=== PATIENT | male | born 1985 | race African-American/Black ===

== ENCOUNTER 2018-04-02 07:25 | Emergency (ER) | payer OTHER ==
[~2018-04-02] VITALS: Ht 175.3 cm; Wt 90.7 kg
--- NOTE | ~2018-04-02 | EKG ---
[address] [place] [address] ELECTROCARDIOGRAM REPORT Name: COURTNEYFERMIN Room #: PRE M.R.#: [id number] Admission: Attend Phys: Discharge: Date of : 85 Report #: [id number] THIS REPORT FOR: //name// [facility] ED Test Date: 2018-04-02 Test Time: 07:25:08 Pat Name: GAIL VALDEZ Department: Room: Gender: M Motor Boss: Gabriella JAFFE : 1985 Requested By: Alma Aguilar Order Number: [id number] MD: Jose Alcantara Measurements Intervals [place] Rate: 63 P: 39 ID: 141 QRS: 56 QRSD: 93 T: -1 QT: 376 QTc: 385 Interpretive Statements Sinus rhythm Baseline wander in lead(s) V4 No previous ECG available for comparison Electronically Signed On 04-02-2018 7:57:23 CDT by Jose Alcantara [email or web address] <ELECTRONICALLY SIGNED> By: Jose Alcanatra MD, [facility] 04/02/18 0757 0725 0725 Jose Alcantara MD, FACC /EPI
[2018-04-02] MEDS ORDERED: BUPRENORP-NALO1 EACH PO (07:33)
[2018-04-02 07:52] LABS: ABSOLUTE NEUTROPHILS 4.4 thou/uL (1.4-8.2); BASOPHILS 0.4 % (0.0-2.0); EOSINOPHILS 2.7 % (0.0-3.0); HEMATOCRIT 42.9 % (42.0-52.0); HEMOGLOBIN 14.6 gm/dL (14.0-18.0); LYMPHOCYTES 23.8 % (24.0-44.0); MCH 32.4 pg (26.0-34.0); MCHC 34.2 g/dL (28.0-37.0); MCV 94.8 fL (80.0-100.0); MONOCYTES 8.8 % (1.0-8.0); PLATELET COUNT 260 thou/uL (150-400); POLYS 64.3 % (36.0-66.0); RBC 4.52 mil/uL (4.50-6.00); RDW 14.4 % (10.5-14.5); WBC 6.9 thou/uL (4.0-11.0)
[2018-04-02 07:58] LABS: ANION GAP 8 mmol/L (7-16); BUN 14 mg/dL (7-18); CALCIUM 9.2 mg/dL (8.5-10.1); CHLORIDE 103 mmol/L (98-107); CO2 26 mmol/L (21-32); GLUCOSE 106 mg/dL (74-106); POTASSIUM 3.8 mmol/L (3.5-5.1); SODIUM 137 mmol/L (136-145)
[2018-04-02 08:07] LABS: TROPONIN-I <0.06 ng/mL (<0.06)
[2018-04-02] MEDS ORDERED: CLONIDINE0.1 PO (08:13)
[2018-04-02 08:36] VITALS: BP 124/79
== END 2018-04-02 08:36 | disposition home or self-care (01) ==
LOC: ER 07:25
PROVIDERS: Emergency Medicine
DX: R07.9 Chest pain, unspecified (principal); I10 Essential (primary) hypertension; F17.210 Nicotine dependence, cigarettes, uncomplicated

== ENCOUNTER 2018-04-04 16:10 | Emergency (ER) | payer OTHER ==
[~2018-04-04] VITALS: Ht 172.7 cm; Wt 83.9 kg
[~2018-04-04 16:10] MED LIST: BUPRENORP-NALO1 EACH PO; CLONIDINE0.1 PO
[2018-04-04 16:46] LABS: BASOPHILS 0.7 % (0.0-2.0); EOSINOPHILS 3.4 % (0.0-3.0); HEMATOCRIT 40.3 % (42.0-52.0); HEMOGLOBIN 13.8 gm/dL (14.0-18.0); LYMPHOCYTES 30.1 % (24.0-44.0); MCH 32.5 pg (26.0-34.0); MCHC 34.2 g/dL (28.0-37.0); MONOCYTES 10.5 % (1.0-8.0); PLATELET COUNT 237 thou/uL (150-400); POLYS 55.3 % (36.0-66.0); RBC 4.24 mil/uL (4.50-6.00); RDW 14.1 % (10.5-14.5); WBC 7.3 thou/uL (4.0-11.0)
[2018-04-04 17:49] LABS: ALBUMIN 4.1 g/dL (3.4-5.0); CALCIUM 9.4 mg/dL (8.5-10.1); POTASSIUM 4.7 mmol/L (3.5-5.1); TOTAL BILIRUBIN 0.3 mg/dL (<0.1-1.0); TOTAL PROTEIN 7.4 g/dL (6.4-8.2)
[2018-04-04 18:43] LABS: URINE BILIRUBIN NEGATIVE (Negative); URINE BLOOD NEGATIVE (Negative); URINE CLARITY CLEAR; URINE COLOR YELLOW; URINE GLUCOSE-RANDOM* NEGATIVE (Negative); URINE KETONES NEGATIVE (Negative); URINE LEUKOCYTES-REFLEX NEGATIVE (Negative); URINE NITRITE-REFLEX NEGATIVE (Negative); URINE PROTEIN (DIPSTICK) NEGATIVE (Negative); URINE SPECIFIC GRAVITY 1.015 (1.005-1.035); URINE UROBILINOGEN 0.2 E.U./dl (0.2-1.0)
[2018-04-04 19:16] VITALS: BP 126/78
== END 2018-04-04 19:18 | disposition home or self-care (01) ==
LOC: ER 16:10
PROVIDERS: Physician Assistant
DX: M54.5 Low back pain (principal); M79.605 Pain in left leg; M79.604 Pain in right leg; T46.5X5A Adverse effect of other antihypertensive drugs, initial encounter; I10 Essential (primary) hypertension; F17.210 Nicotine dependence, cigarettes, uncomplicated

== ENCOUNTER 2021-09-13 13:38 | Emergency (ER) | payer OTHER ==
[~2021-09-13] VITALS: Ht 175.3 cm; Wt 96.2 kg
[2021-09-13 15:06] LABS: ABSOLUTE NEUTROPHILS 3.3 thou/uL (1.4-8.2); BASOPHILS 0.6 % (0.0-2.0); HEMATOCRIT 45.7 % (42.0-52.0); HEMOGLOBIN 15.4 gm/dL (14.0-18.0); LYMPHOCYTES 17.1 % (24.0-44.0); MCH 31.1 pg (26.0-34.0); MCHC 33.8 g/dL (28.0-37.0); MCV 92.1 fL (80.0-100.0); MONOCYTES 10.7 % (1.0-8.0); PLATELET COUNT 211 thou/uL (150-400); POLYS 71.6 % (36.0-66.0); RBC 4.96 mil/uL (4.50-6.00); RDW 13.4 % (10.5-14.5); WBC 4.6 thou/uL (4.0-11.0)
[2021-09-13 15:10] LABS: CALCIUM 8.9 mg/dL (8.5-10.1); POTASSIUM 3.9 mmol/L (3.5-5.1)
[2021-09-13 15:15] LABS: ALBUMIN 3.5 g/dL (3.4-5.0); TOTAL BILIRUBIN 0.4 mg/dL (0.2-1.0); TOTAL PROTEIN 7.6 g/dL (6.4-8.2)
[2021-09-13 15:37] LABS: D-DIMER 0.41 ug/mLFEU (0.19-0.50); INR 1.07; PROTIME 11.6 Seconds (10.5-12.1)
[2021-09-13 16:30] VITALS: BP 126/74
[2021-09-13] MEDS ORDERED: ZPAK PO (16:34)
--- NOTE | 2021-09-14 07:18 | EKG ---
[address] [place] [address] ELECTROCARDIOGRAM REPORT Name: FERMIN VALDEZ Room #: DEP RENETTA Payan#: [id number] Admission: 09/13/21 Attend Phys: Discharge: 09/13/21 Date of : 85 Report #: [id number] [facility] ED Test Date: 2021-09-13 Test Time: 13:51:41 Pat Name: FERMIN VALDEZ Department: Room: Gender: M Metrology Specialist: DAGMAR : 1985 Requested By: Rafael Coko Order Number: [id number] MD: Abelardo Romero Measurements Intervals [place] Rate: 91 P: 72 AK: 131 QRS: 74 QRSD: 90 T: -19 QT: 348 QTc: 429 Interpretive Statements Sinus rhythm Nonspecific T abnormalities, diffuse leads Compared to ECG 04/02/2018 07:25:08 T-wave abnormality now present Electronically Signed On 09-14-2021 7:18:13 [employer]ASMA ARC by Abelardo Romero [email or web address] <ELECTRONICALLY SIGNED> By: Abelardo Romero MD, [facility] 09/14/21 0718 1351 1351 Abelardo Romero MD, FACC /EPI
== END 2021-09-13 16:30 | disposition home or self-care (01) ==
LOC: ER 13:38
PROVIDERS: Nurse Practitioner
DX: U07.1 COVID-19 (principal); J12.82 Pneumonia due to coronavirus disease 2019; F11.20 Opioid dependence, uncomplicated; F17.210 Nicotine dependence, cigarettes, uncomplicated; Z98.890 Other specified postprocedural states; Z86.16 Personal history of COVID-19; Z79.899 Other long term (current) drug therapy